=== PATIENT | female | born 1995 | race Native Hawaiian/Other Pacific Islander ===

== ENCOUNTER 2024-04-19 17:01 | Emergency (ER) | payer OTHER, SELFPAY ==
[2024-04-19 17:06] VITALS: BP 133/72; PULSE 62; RESP 14; TEMP 36.3; O2SAT 99; BMI 28.3
[2024-04-19 17:28] LABS: Appearance Urine UA TURBID; Color Urine UA RED; Glucose Urine UA NEGATIVE (Negative); Ketones Urine UA 2+ (NEGATIVE); Leukocyte Esterase Urine UA 2+ (NEGATIVE); Occult Blood Urine UA 3+ (Negative); Protein Urine UA 2+ (Negative); Urobilinogen Urine UA 0.2 E.U./dL (0.2)
[2024-04-19 17:29] LABS: Bilirubin Urine UA Negative (NEGATIVE); pH Urine UA 7.5 (4.5-8.0)
[2024-04-19 17:30] LABS: Nitrite Urine UA NEGATIVE (Negative)
[2024-04-19 17:34] LABS: Bacteria Urine Moderate (10-30); Culture Indicated Urine Specimen Cultured; RBC Urine >100/HPF (0-5/HPF); Squamous Epithelial Cell Urine 1-5 /HPF (0-5/HPF); Urine Volume 10mL (spun); WBC Urine 30-100/HPF (0-5/HPF)
--- NOTE | 2024-04-19 19:33 | ED_ITS ---
HPI - Female Genitourinary General Chief complaint: Urogenital-Female Stated complaint: blood in urine Time Seen by Provider: 04/19/24 19:22 Source: patient Mode of arrival: Ambulatory History of Present Illness HPI Narrative: 28-year-old female presents by private vehicle from home for dysuria and hematuria x2 days. States that she occasionally gets urinary tract infections, last infection more than 1 month ago. Came back from vacation in [place] today and noticed the blood in her urine after getting off the plane. Concerned that she has another UTI Related Data Previous Rx's Medication Instructions Recorded cephalexin 500 mg tablet 500 mg PO Q12H #10 tabs 04/19/24 ondansetron 4 mg disintegrating 4 mg PO Q8H PRN nausea and 04/19/24 tablet vomiting #30 tabs phenazopyridine 200 mg tablet 200 mg PO TID PRN pain #30 tabs 04/19/24 (Pyridium) Allergies Allergy/AdvReac Type Severity Reaction Status Date / Time No Known Drug Allergies Allergy Verified 04/19/24 17:06 Exam Initial Vital Signs Initial Vital Signs: Vital Signs Temperature 97.4 F L 04/19/24 17:06 Pulse Rate 62 04/19/24 17:06 Respiratory Rate 14 04/19/24 17:06 Blood Pressure 133/72 04/19/24 17:06 Pulse Oximetry 99 04/19/24 17:06 Oxygen Delivery Method Room Air 04/19/24 17:06 Const: Awake, alert, no acute distress, nontoxic appearing Cardiac: regular rate, regular rhythm RESP: unlabored, conversational without dyspnea GI: Soft, nontender, nondistended MSK: no midline tenderness, no CVA tenderness Skin: Warm, Dry, intact, no rashes Neuro: AO x3, CN II-XII grossly intact, moves all extremities Course Orders Ordered: Discontinued Medications Acetaminophen (Acetaminophen 325 Mg Tablet) 975 mg PO NOW ONE Stop: 04/19/24 19:54 Last Admin: 04/19/24 19:59 Dose: 975 mg Documented By: AVEL Cefazolin Sodium (Cephalexin 250 Mg Cap Prepack) 1 bottle MISC DIRECTED ONE Stop: 04/19/24 20:03 Last Admin: 04/19/24 20:08 Dose: 500 mg Documented By: AVEL Ondansetron HCl (Ondansetron 4 Mg/2 Ml Inj) 4 mg IV NOW PRN PRN Reason: Nausea And Vomiting Ondansetron HCl (Ondansetron 4 Mg Odt) 4 mg SL NOW PRN PRN Reason: Nausea And Vomiting Last Admin: 04/19/24 20:00 Dose: 4 mg Documented By: AVEL Ondansetron HCl (Ondansetron 4 Mg Odt Prepack) 1 bottle MISC DIRECTED ONE Stop: 04/19/24 20:03 Last Admin: 04/19/24 20:09 Dose: 1 bottle Documented By: AVEL Vital Signs Vital signs: Vital Signs - 8 hr 04/19/24 20:02 Pulse Rate 72 Respiratory Rate 16 Blood Pressure 116/71 Pulse Oximetry 98 Oxygen Delivery Method Room Air MDM - Female Genitourinary Differential Diagnosis Differential diagnosis: Likely urinary tract infection, cystitis and other (hematuria) Lab Data Labs: Lab Results 04/19/24 Range/Units 17:11 Urine Color Red Urine Appearance Turbid Urine pH 7.5 (4.5-8.0) Ur Specific [place] 1.010 (1.000-1.035) Urine Protein 2+ H (Negative) Urine Glucose (UA) Negative (Negative) g/dL Urine Ketones 2+ H (NEGATIVE) Urine Occult Blood 3+ H (Negative) Urine Nitrate Negative (Negative) Urine Bilirubin Negative (NEGATIVE) Urine Urobilinogen 0.2 (0.2) E.U./dL Ur Leukocyte Esterase 2+ H (NEGATIVE) Urine RBC >100/hpf H (0-5/HPF) Urine WBC 30-100/hpf H (0-5/HPF) Ur Squamous Epith Cells 1-5 /hpf (0-5/HPF) Urine Bacteria Moderate (10-30) H (None) Ur Culture Indicated? Specimen cultured Vol Urine Centrifuged 10ml (spun) [facility] Narrative Medical decision making narrative: Burning with urination and blood in urine. No CVA tenderness to indicate pyelonephritis. Afebrile, physical exam is otherwise benign. Leukocyte esterase, WBCs, moderate bacteria noted. Patient given antibiotics, Zofran, Pyridium prescription. Prepack of the medications provided prior to discharge since tomorrow is [place] and pharmacies are closed. Patient counseled on the importance of primary care follow up. Discharge Plan Departure Patient Disposition: Home Clinical Impression: Urinary tract infection, Cystitis Instructions: DI for Urinary Tract Infection (UTI) Activity Restrictions/Additional Instructions: Finish all of your antibiotics as prescribed. You may take Tylenol or ibuprofen as needed for pain or fever. Follow up with a primary care doctor as needed when you return home. Prescriptions: New cephalexin 500 mg tablet 500 mg PO Q12H Qty: 10 0RF phenazopyridine [Pyridium] 200 mg tablet 200 mg PO TID PRN (Reason: pain) Qty: 30 0RF ondansetron 4 mg tablet,disintegrating 4 mg PO Q8H PRN (Reason: nausea and vomiting) Qty: 30 0RF Stand Alone Forms: Patient Portal/API/Survey
--- NOTE | 2024-04-19 19:56 | PC.NURSE ---
Pt ambulatory to restroom without difficulty or assistance.
[2024-04-19] MEDS: ACETAMINOPHEN 325 MG TABLET 975 MG PO (19:59)
[2024-04-19] MEDS: ONDANSETRON 4 MG ODT SL (20:00)
[2024-04-19 20:02] VITALS: BP 116/71; PULSE 72; RESP 16; O2SAT 98
[2024-04-19] MEDS: cephALEXin 250 MG CAP PREPACK 1 BOTTLE MISC (20:08)
[2024-04-19] MEDS: ONDANSETRON 4 MG ODT PREPACK 1 BOTTLE MISC (20:09)
== END 2024-04-19 20:12 | disposition home or self-care (01) ==
PROVIDERS: Emergency Medicine; Emergency Provider Emergency Medicine
DX: N30.90 Cystitis, unspecified without hematuria (principal)
CPT/HCPCS: 81001; 87077; 87086; 87186; 99283